=== PATIENT | male | born 1970 | race Caucasian/White ===

== ENCOUNTER 2018-02-14 17:21 | Emergency (ER) | payer OTHER ==
[~2018-02-14] VITALS: Ht 177.8 cm; Wt 77.1 kg
== END 2018-02-15 00:13 | disposition home or self-care (01) ==
LOC: ER 17:21
DX: R73.9 Hyperglycemia, unspecified (principal)

== ENCOUNTER 2018-05-09 22:35 | Emergency (ER) | payer OTHER ==
[~2018-05-09] VITALS: Ht 180.3 cm; Wt 78.0 kg
[2018-05-09] MEDS ORDERED: METFORMIN HCL500 MG (22:43)
[2018-05-09] MEDS ORDERED: COZAAR25 MG (22:43)
== END 2018-05-10 09:33 | disposition home or self-care (01) ==
LOC: ER 22:35 → CPU-OBS 22:38 → ER 05-10 09:33
DX: R07.89 Other chest pain (principal)
CPT/HCPCS: G0378; G0379; 93005

== ENCOUNTER 2018-10-18 00:18 | Emergency (ER) | payer OTHER ==
[~2018-10-18] VITALS: Ht 177.8 cm; Wt 76.2 kg
[~2018-10-18 00:18] MED LIST: COZAAR25 MG; METFORMIN HCL500 MG
[2018-10-18] MEDS ORDERED: DOLOGESIC 500-1 EACH PO (04:21)
== END 2018-10-18 04:35 ==
LOC: ER 00:18
DX: F41.8 Other specified anxiety disorders (principal); E13.65 Other specified diabetes mellitus with hyperglycemia; R00.2 Palpitations

== ENCOUNTER 2019-01-10 15:44 | Emergency (ER) | payer OTHER ==
[~2019-01-10] VITALS: Ht 162.6 cm; Wt 77.1 kg
[~2019-01-10 15:44] MED LIST changes: +DOLOGESIC 500-1 EACH PO
== END 2019-01-10 20:07 | disposition home or self-care (01) ==
LOC: ER 15:44
DX: R00.2 Palpitations (principal); F06.4 Anxiety disorder due to known physiological condition

== ENCOUNTER 2024-09-07 00:18 | Emergency (ER) | payer OTHER ==
[~2024-09-07] VITALS: Ht 180.3 cm; Wt 79.4 kg
[2024-09-07] MEDS ORDERED: JANUMET XR 50-1 EAC1 PO (00:51)
[2024-09-07] MEDS ORDERED: JARDIANCE10 MG PO (00:51)
[2024-09-07] MEDS ORDERED: ATORVASTATIN CA10 MG PO (00:51)
[2024-09-07] MEDS ORDERED: FENOFIBRIC ACI135 MG PO (00:52)
[2024-09-07] MEDS ORDERED: KETOROLAC TROMETHAMINE 60 MG VIAL IM STA (03:54)
[2024-09-07] MEDS ORDERED: ORPHENADRINE CITRATE 30 MG/ML AMPUL IM STA (03:55)
[2024-09-07] MEDS ORDERED: DICLOFENAC POTA50 MG PO (05:28)
== END 2024-09-07 05:33 ==
LOC: ER 00:18
DX: M25.511 Pain in right shoulder (principal); Z91.013 Allergy to seafood